=== PATIENT | female | born 1985 | race Caucasian/White ===

== ENCOUNTER 2016-07-26 23:10 | Emergency (ER) | payer OTHER ==
[~2016-07-26] VITALS: Ht 160 cm; Wt 86.2 kg
--- NOTE | ~2016-07-26 | EKG ---
[place], [place] ELECTROCARDIOGRAM REPORT NAME: MARCI BEAR UNIT #: [id number] ROOM: DOCTOR: RAFITA SHEA MD BIRTHDATE: [birth year] DOS: 07/26/2016 TIME: 2341 hours. Normal sinus rhythm at 88 beats per minute. The tracing is normal. No previous tracing is available for comparison. RAFITA SHEA MD CM:EKGRPT:ELECTROCARDIOGRAM REPORT 1708 2048 RAFITA SHEA MD
[~2016-07-26 23:10] MED LIST: CLARITIN10 MG PO; MEDROL DOSEPAK4 MG PO; ROBITUSSIN AC 110 ML PO; ZITHROMAX Z PA250 MG PO; ZITHROMAX250 MG PO; ZYRTEC10 MG PO
[2016-07-26] MEDS ORDERED: LABETALOL HCL100 MG PO (23:22)
[2016-07-26] MEDS ORDERED: IRON325 M1 PO (23:23)
[2016-07-26] MEDS ORDERED: PRENATAL1 TA3 PO (23:23)
[2016-07-26] MEDS ORDERED: PERCOCET 325 MG1 TA6 PO (23:23)
[2016-07-26 23:56] LABS: BILIRUBIN NEGATIVE (NEGATIVE); BLOOD 2+ (NEGATIVE); CLARITY CLEAR (CLEAR); COLOR YELLOW (YELLOW); GLUCOSE NEGATIVE (NEGATIVE); KETONE NEGATIVE (NEGATIVE); LEUKO ESTERASE NEGATIVE (NEGATIVE); NITRITE NEGATIVE (NEGATIVE); PH 7.5 (5.0-9.0); PROTEIN TRACE (NEGATIVE); UROBILINOGEN 0.2 E.U./dl (0.2-1.0)
[2016-07-26 23:59] LABS: BASO % 0.2 % (0.0-1.0); BUN 10 mg/dl (7-24); CARBON DIOXIDE 25 mmol/L (21-32); CHLORIDE 102 mmol/L (98-107); EOS # 0.4 10*3/uL (0.0-0.4); EOS % 3.6 % (1.0-4.0); EST GLOM FILT AFRICAN AMERICAN > 60 ml/min; GLUCOSE 92 mg/dL (65-99); HEMATOCRIT 29.5 % (37.0-47.0); HEMOGLOBIN 9.8 g/dl (12.0-16.0); IG # 0.1 10*3/uL (0.0-0.1); LYMPH # 2.6 10*3/uL (1.3-4.4); LYMPH % 21.5 % (27.0-41.0); MEAN CELL VOLUME 102.4 fl (81.0-99.0); MEAN CORPUSCULAR HGB CONC 33.2 g/dl (33.0-37.0); MEAN PLATELET VOLUME 10.2 fl (9.6-12.3); MONO % 8.5 % (3.0-9.0); NEUT % 65.4 % (47.0-73.0); PLATELET COUNT AUTOMATED 300 10*3/uL (130-400); POTASSIUM 3.5 mmol/L (3.5-5.1); RED BLOOD COUNT 2.88 10*6/uL (4.10-5.10); RED CELL DISTRI WIDTH 13.2 % (0-14.5); SODIUM 140 mmol/L (136-145); WHITE BLOOD COUNT 12.2 10*3/uL (4.8-10.8)
[2016-07-27 00:04] LABS: BACTERIA 2+; URINE REFLEX COMMENT YES (NO)
[2016-07-27] MEDS ORDERED: LABETALOL HCL200 MG PO (01:56)
[2016-07-27] MEDS ORDERED: MACROBID100 M1 PO (01:56)
== END 2016-07-27 03:07 | disposition home or self-care (01) ==
LOC: ED 23:10
PROVIDERS: Emergency Medicine Emergency Medical Services
DX: N39.0 Urinary tract infection, site not specified (principal); I10 Essential (primary) hypertension; F17.200 Nicotine dependence, unspecified, uncomplicated; Z98.890 Other specified postprocedural states; Z88.2 Allergy status to sulfonamides